=== PATIENT | female | born 1945 | race Caucasian/White ===

== ENCOUNTER → 2017-07-12 | Outpatient (CLI) | payer OTHER ==
[~2017-07-12] MED LIST: FURO20 PO; LEVSOD125 PO; POTA10T PO
== END | disposition home or self-care (01) ==
LOC: LAB EV 12:03
DX: R30.0 Dysuria (principal)
CPT/HCPCS: 87086

== ENCOUNTER → 2017-09-19 | Outpatient (CLI) | payer OTHER ==
[2017-09-19 10:12] LABS: Source, Urine Voided
[2017-09-19 10:18] LABS: Bacteria Rare /hpf; Mucus Light (0-Heavy); Red Blood Cells, Urine Not Seen /hpf (0-2); Squamous Epithelial Cells Few /hpf (Few)
== END | disposition home or self-care (01) ==
LOC: LAB SHORT 10:11 → LAB EV 10:11
PROVIDERS: Physician Assistant
DX: R10.30 Lower abdominal pain, unspecified (principal); N30.00 Acute cystitis without hematuria
CPT/HCPCS: 81015; 87086

== ENCOUNTER 2019-04-08 02:55 | Inpatient (IN) | payer OTHER ==
[~2019-04-08] VITALS: Ht 160 cm; Wt 99.1 kg
[2019-04-08] MEDS ORDERED: Synthroid88 MCG PO (03:17)
[2019-04-08] MEDS ORDERED: FURO20 PO (03:17)
[2019-04-08] MEDS ORDERED: ALBU90OI INH (03:17)
[2019-04-08] MEDS ORDERED: POTA10T PO (03:17)
[2019-04-08] MEDS ORDERED: THERA1 EACH PO (03:17)
[2019-04-08 03:24] LABS: BASOPHILS ABSOLUTE AUTO 0.04 K/mm3 (0.00-0.23); BASOPHILS PERCENT AUTO 1 % (0-2); EOSINOPHILS ABSOLUTE AUTO 0.13 K/mm3 (0.00-0.68); EOSINOPHILS PERCENT AUTO 2 % (0-6); Hematocrit 33.9 % (33.0-51.0); Hemoglobin 11.1 g/dL (11.5-16.0); IMMATURE GRAN ABSOLUTE AUTO 0.01 K/mm3 (0.00-0.10); IMMATURE GRAN PERCENT AUTO 0 % (0-1); LYMPHOCYTES ABSOLUTE AUTO 2.19 K/mm3 (0.84-5.20); LYMPHOCYTES PERCENT AUTO 39 % (21-46); MONOCYTES ABSOLUTE AUTO 0.69 K/mm3 (0.16-1.47); MONOCYTES PERCENT AUTO 12 % (4-13); Mean Corpuscular HGB 34.7 pg (26.0-34.0); Mean Corpuscular HGB Conc 32.7 g/dL (31.5-36.5); Mean Corpuscular Volume 106 fL (80-100); Mean Platelet Volume 11.2 fL (9.1-12.4); NEUTROPHILS ABSOLUTE AUTO 2.63 K/mm3 (1.96-9.15); NEUTROPHILS PERCENT AUTO 46 % (41-73); Platelet Count 130 K/mm3 (150-400); RDW Coefficient Variation 16.9 % (11.7-14.2); RDW Standard Deviation 65.9 fL (35.1-46.3); White Blood Cell Count 5.69 K/mm3 (4.00-11.30)
[2019-04-08 03:40] LABS: Alanine Aminotransfer (ALT/SGP 56 U/L (12-78); Albumin/Globulin Ratio 0.8 (0.8-1.8); Alk Phos 208 U/L (50-136); Anion Gap 10 mmol/L (6-16); Aspartate Aminotrans (AST/SGOT 70 U/L (12-37); Bilirubin, Total 0.8 mg/dL (0.1-1.0); Blood Urea Nitrogen 33 mg/dL (8-24); Bun/Creatinine Ratio 20.9 (12.0-20.0); CO2, Blood 22 mmol/L (21-32); Calcium, Blood 9.7 mg/dL (8.5-10.1); Chloride, Blood 111 mmol/L (98-108); Creatinine, Blood 1.58 mg/dL (0.40-1.00); Globulin, Blood 3.9 g/dL (2.2-4.0); Glomerular Filtration Rate 34 (60-); Glucose, Blood 85 mg/dL (70-99); Potassium, Blood 4.2 mmol/L (3.5-5.5); Sodium, Blood 143 mmol/L (136-145); Total Protein, Blood 6.9 g/dL (6.4-8.2); Troponin I <0.015 ng/mL (0.000-0.040)
--- NOTE | 2019-04-08 05:54 | NUR ---
0540 PT ADMITTED TO ROOM 306 PER CART FROM ER.
[2019-04-08 13:49] LABS: Bun/Creatinine Ratio 20.9 (12.0-20.0); Calcium, Blood 9.6 mg/dL (8.5-10.1); Creatinine, Blood 1.77 mg/dL (0.40-1.00); Potassium, Blood 4.3 mmol/L (3.5-5.5)
--- NOTE | 2019-04-08 15:23 | NUR ---
ECHOCARDIOGRAM COMPLETE
--- NOTE | 2019-04-08 16:26 | NUR ---
SUMMARY PT IS A/O X4, PLEASANT/COOPERATIVE AFFECT. SHE STATE NO SOB/DYSPNEA @ REST. UP SBA TO BR, GAIT STEADY. THIS AM SHE HAD ORDERS FOR NS 1L BOLUS THEN NS @ 200 ML/HR, DR AARON STOP IMMEDIATELY & ORDER NEPHROLOGY CONSULT w DR PICHARDO. IV BUMEX 2MG ORDERED. DR PICHARDO AGREE NO IVF. ORDER BLADDER SCAN, PVR 20 ML. ORDER RENAL US. ECHO COMPLETED. GFR 30. BNP 397. 24HR URINE PROTEIN COLLECTION IN PROGRESS. HER LUNGS HAVE BEEN CLEAR, 2+ EDEMA BLE. BP SOMEWHAT LOW, 100/45, WILL MX.
--- NOTE | 2019-04-08 22:37 | NUR ---
2000 77 Y/O FEMALE RESTING COMFORTABLY IN BED, DENIES CHEST PAIN OR SOB. 2229 PT C/O SLIGHT SOB, LUNG SOUNDS DIMINISHED THROUGHOUT, RESPIRATORY THERAPIST AT SIDE FOR BREATHING TREATMENT AND EVALUATION.
--- NOTE | 2019-04-09 03:57 | NUR ---
SHIFT SUMMARY: 74 Y/O OBESE FEMALE RESTED COMFORTABLY ALL SHIFT, C/O SOB ONCE WITH NEBULIZER TREATMENT GIVEN WITH RELIEF FELT, ALSO C/O THAT HOSPITAL BED VERY UNCOMFORTABLE NO MATTER WHICH POSITION SHE LAYS, TYLENOL 650MG PO GIVEN FOR HEADACHE AND GENERAL DISCOMFORT WITH RELIEF FELT, ALERT AND ORIENTED X 4, LUNG SOUNDS ARE DIMINISHED THROUGHOUT, BED LOW POSITION WITH CALL LIGHT AT SIDE.
[2019-04-09 04:18] LABS: BASOPHILS ABSOLUTE AUTO 0.03 K/mm3 (0.00-0.23); BASOPHILS PERCENT AUTO 1 % (0-2); EOSINOPHILS ABSOLUTE AUTO 0.03 K/mm3 (0.00-0.68); EOSINOPHILS PERCENT AUTO 1 % (0-6); Hematocrit 30.2 % (33.0-51.0); IMMATURE GRAN ABSOLUTE AUTO 0.03 K/mm3 (0.00-0.10); IMMATURE GRAN PERCENT AUTO 1 % (0-1); LYMPHOCYTES ABSOLUTE AUTO 1.11 K/mm3 (0.84-5.20); LYMPHOCYTES PERCENT AUTO 17 % (21-46); MONOCYTES ABSOLUTE AUTO 1.17 K/mm3 (0.16-1.47); MONOCYTES PERCENT AUTO 18 % (4-13); Mean Corpuscular HGB 35.1 pg (26.0-34.0); Mean Corpuscular HGB Conc 33.1 g/dL (31.5-36.5); Mean Corpuscular Volume 106 fL (80-100); Mean Platelet Volume 11.5 fL (9.1-12.4); NEUTROPHILS ABSOLUTE AUTO 4.25 K/mm3 (1.96-9.15); NEUTROPHILS PERCENT AUTO 64 % (41-73); Platelet Count 114 K/mm3 (150-400); RDW Standard Deviation 65.2 fL (35.1-46.3); Red Blood Cell Count 2.85 M/mm3 (3.80-5.20); White Blood Cell Count 6.62 K/mm3 (4.00-11.30)
[2019-04-09 04:39] LABS: Albumin, Blood 2.7 g/dL (3.4-5.0); Anion Gap 10 mmol/L (6-16); Blood Urea Nitrogen 43 mg/dL (8-24); Bun/Creatinine Ratio 21.2 (12.0-20.0); CO2, Blood 20 mmol/L (21-32); Calcium, Blood 9.2 mg/dL (8.5-10.1); Chloride, Blood 113 mmol/L (98-108); Creatinine, Blood 2.03 mg/dL (0.40-1.00); Glomerular Filtration Rate 25 (60-); Glucose, Blood 75 mg/dL (70-99); Phosphorus, Blood 4.4 mg/dL (2.5-4.9); Potassium, Blood 4.4 mmol/L (3.5-5.5); Sodium, Blood 143 mmol/L (136-145)
[2019-04-09 04:43] LABS: Thyroid Stimulating Hormone 0.951 uIU/mL (0.360-4.800)
[2019-04-09 11:58] LABS: Protein, Urine Quantitative 34.1 mg/dL (0.0-11.9)
--- NOTE | 2019-04-09 16:20 | NUR ---
SUMMARY PT STATE CONTINUING SHORTNESS OF BREATH, HER KIDNEY FX/GFR DECREASED OVERNITE TO 25, BNP INCREASED TO 631. BIOX 92-94% RA, LS w SOME CRACKLES BASES, BREATHING UNLABORED. DR PICHARDO IN TO SEE HER EARLY AM, INCREASE IV BUMEX 2MG TO BID. DR AARON AGREE. EXPLAIN ISSUES OF HEART & KIDNEY FAILURE TO PT/FAMILY. PT IS A/O X4, PLEASANT, UP SBA TO BR. VSS.
[2019-04-10 04:48] LABS: BASOPHILS ABSOLUTE AUTO 0.03 K/mm3 (0.00-0.23); BASOPHILS PERCENT AUTO 1 % (0-2); EOSINOPHILS ABSOLUTE AUTO 0.09 K/mm3 (0.00-0.68); EOSINOPHILS PERCENT AUTO 1 % (0-6); Hematocrit 31.1 % (33.0-51.0); Hemoglobin 10.2 g/dL (11.5-16.0); IMMATURE GRAN ABSOLUTE AUTO 0.02 K/mm3 (0.00-0.10); IMMATURE GRAN PERCENT AUTO 0 % (0-1); LYMPHOCYTES ABSOLUTE AUTO 1.55 K/mm3 (0.84-5.20); LYMPHOCYTES PERCENT AUTO 24 % (21-46); MONOCYTES ABSOLUTE AUTO 1.06 K/mm3 (0.16-1.47); MONOCYTES PERCENT AUTO 16 % (4-13); Mean Corpuscular HGB 35.3 pg (26.0-34.0); Mean Corpuscular HGB Conc 32.8 g/dL (31.5-36.5); Mean Corpuscular Volume 108 fL (80-100); Mean Platelet Volume 11.7 fL (9.1-12.4); NEUTROPHILS ABSOLUTE AUTO 3.78 K/mm3 (1.96-9.15); NEUTROPHILS PERCENT AUTO 58 % (41-73); NRBC ABSOLUTE 0.02 K/mm3 (0.00-0.02); NRBC Auto 0.3 /100 WBC (0.0-0.2); Platelet Count 110 K/mm3 (150-400); RDW Coefficient Variation 17.3 % (11.7-14.2); RDW Standard Deviation 67.8 fL (35.1-46.3); Red Blood Cell Count 2.89 M/mm3 (3.80-5.20); White Blood Cell Count 6.53 K/mm3 (4.00-11.30)
[2019-04-10 05:07] LABS: Albumin, Blood 2.7 g/dL (3.4-5.0); Anion Gap 11 mmol/L (6-16); Blood Urea Nitrogen 52 mg/dL (8-24); CO2, Blood 21 mmol/L (21-32); Calcium, Blood 9.4 mg/dL (8.5-10.1); Chloride, Blood 112 mmol/L (98-108); Creatinine, Blood 2.36 mg/dL (0.40-1.00); Glomerular Filtration Rate 21 (60-); Glucose, Blood 74 mg/dL (70-99); Magnesium, Blood 2.2 mg/dL (1.6-2.4); Phosphorus, Blood 5.2 mg/dL (2.5-4.9); Potassium, Blood 4.2 mmol/L (3.5-5.5); Sodium, Blood 144 mmol/L (136-145)
--- NOTE | 2019-04-10 05:53 | NUR ---
SHIFT SUMMARY SLEPT WELL T/O NIGHT. AOX4. VSS. REPORTS FEELING DYSPNIC EVEN @REST & WORSE W/LYING FLAT. E/U RESPIRATIONS, LUNGS SOUND DIM T/O, SPO2 >90% ON RA, ENCOURAGED KEEPING HOB ELEVATED. PT UP MULTIPLE TIMES TO USE RESTROOM W/SBA. DENIES PAIN OR N/V. CALL LIGHT IN REACH.
[2019-04-11 05:01] LABS: Hematocrit 30.4 % (33.0-51.0); Hemoglobin 10.3 g/dL (11.5-16.0)
[2019-04-11 05:15] LABS: Albumin, Blood 2.7 g/dL (3.4-5.0); Anion Gap 9 mmol/L (6-16); Blood Urea Nitrogen 53 mg/dL (8-24); Bun/Creatinine Ratio 23.8 (12.0-20.0); CO2, Blood 25 mmol/L (21-32); Calcium, Blood 9.6 mg/dL (8.5-10.1); Chloride, Blood 111 mmol/L (98-108); Creatinine, Blood 2.23 mg/dL (0.40-1.00); Glomerular Filtration Rate 23 (60-); Glucose, Blood 83 mg/dL (70-99); Magnesium, Blood 2.3 mg/dL (1.6-2.4); Phosphorus, Blood 3.9 mg/dL (2.5-4.9); Potassium, Blood 3.8 mmol/L (3.5-5.5); Sodium, Blood 145 mmol/L (136-145)
--- NOTE | 2019-04-11 07:20 | NUR ---
SHIFT SUMMARY NO ACUTE CHANGES THIS SHIFT. AOX4. VSS. SLEPT WELL T/O NIGHT. DENIES PAIN, N/V. STILL REPORTS DYSPNEA, MORE W/EXERTION. E/U RESPIRATIONS, LUNGS DIM T/O, SPO2 >90% ON RA. BLE EDEMA NOTED. SBA W/AMBULATION. CALL LIGHT IN REACH.
--- NOTE | 2019-04-11 15:24 | NUR ---
Patient is lying in bed and alert. Patient tells me that she has had difficult medical issues and sees that she has a long recovery ahead. She shares that she is up for the challenge and that she finds strength in her chas. Patient attends [employer] [facility] the [facility] and is often encouraged by the people who attend. Patient shares with me about her family unit complications, some of her personal emotional battles and about the challenge of the 28 steps up to her house. I listen empathically, reinforce helpful attitutes and practices provide emotional support, pastoral chromosomal disorders counselor and prayer. Patient responds well and shows signs of reduced stress. I will continue to remain available to patient and family.
--- NOTE | 2019-04-11 17:18 | NUR ---
SUMMARY PT RESTING QUIETLY IN BED, HAS BEEN PLEASANT AND COOPERATIVE WITH CARE T/O THE DAY, WORKED WITH PT/OT, SNF IS RECOMMENDED, FAMILY HAS BEEN IN TO VISIT, VSS NO ACUTE CHANGES, WILL CONT TO MONITOR
[2019-04-12 04:55] LABS: Hematocrit 30.4 % (33.0-51.0); Hemoglobin 10.1 g/dL (11.5-16.0)
[2019-04-12 05:39] LABS: Albumin, Blood 2.7 g/dL (3.4-5.0); Anion Gap 10 mmol/L (6-16); Blood Urea Nitrogen 58 mg/dL (8-24); Bun/Creatinine Ratio 26.6 (12.0-20.0); CO2, Blood 25 mmol/L (21-32); Calcium, Blood 9.7 mg/dL (8.5-10.1); Chloride, Blood 110 mmol/L (98-108); Creatinine, Blood 2.18 mg/dL (0.40-1.00); Glomerular Filtration Rate 23 (60-); Glucose, Blood 68 mg/dL (70-99); Magnesium, Blood 2.4 mg/dL (1.6-2.4); Phosphorus, Blood 4.4 mg/dL (2.5-4.9); Potassium, Blood 3.8 mmol/L (3.5-5.5); Sodium, Blood 145 mmol/L (136-145)
--- NOTE | 2019-04-12 06:49 | NUR ---
SHIFT SUMMARY NO ACUTE CHANGES THIS SHIFT. AOX4. VSS. REPORTS PAIN IN BILAT HIPS FROM SLEEPING IN HOSPITAL BED, MEDICATED W/TYLENOL PER ORDER. DENIES SOB @REST. E/U RESPIRATIONS. SPO2 >90% ON RA. LUNGS SOUND DIM T/O. DENIES N/V. CALL LIGHT IN REACH.
--- NOTE | 2019-04-12 08:45 | NUR ---
PT PLEASANT COOP A/O, DENIES PAIN AT THIS TIME. STATES LIGHTLY SOB WITH WALKING. H/R REG, MURTIP NOTED. NO TELE. NO PACER. LUNGS CLEAR T/O. RESP EASY, UNLABORED. ON RA. BT X4 LAST BM 1-2 DAYS. STATES NOT EXACTLY SURE. VOIDS SBA WITH FWW TO BATHROOM. GENERAL NON-PITTING EDEMA BED IN LOW POSITION, CALL LITE IN REACH, CALLS APPPROP
[2019-04-12] MEDS ORDERED: Bumetanide2 MG PO (14:27)
[2019-04-12] MEDS ORDERED: Vsl#3 Capsule1 EACH PO (14:28)
[2019-04-12] MEDS ORDERED: FLUTICASONE-SA1 EAC2 INH (14:28)
[2019-04-12] MEDS ORDERED: TRAM50 PO (14:29)
[2019-04-12] MEDS ORDERED: SENN187 PO (14:29)
--- NOTE | 2019-04-12 15:49 | NUR ---
Patient is lying in bed and alert. Patient informs that she is being discharged today. Patient is excited about having movement forward and about how well she did with PT today. Patient shares more about her family and her hobbies. I listen empathically, celebrate her victories and provide prayer. Patient voices appreciation for the visit.
--- NOTE | 2019-04-12 16:36 | NUR ---
discharge at 1530 going to [facility]. called report to [facility]. [facility]. iv pulled intact. pt out at 1531
--- NOTE | 2019-04-25 01:12 | NUR ---
REVIEWED PATIENT'S DISCHARGE INFORMATION TO FIND OUT WHAT [facility] SHE WAS RECENTLY DISCHARGED FROM TODAY TO GET HER MEDICATION LIST.
== END 2019-04-12 15:54 | disposition home or self-care (01) | DRG 682 ==
LOC: ER 02:55 → MEDS 02:56
PROVIDERS: Emergency Medicine; Family Medicine; Internal Medicine Nephrology; ADMIT Hospitalist
DX: N17.9 Acute kidney failure, unspecified (principal); I50.33 Acute on chronic diastolic (congestive) heart failure; E03.9 Hypothyroidism, unspecified; E66.9 Obesity, unspecified; Z68.38 Body mass index [BMI] 38.0-38.9, adult; E87.70 Fluid overload, unspecified; I27.20 Pulmonary hypertension, unspecified; I08.3 Combined rheumatic disorders of mitral, aortic and tricuspid valves; E83.39 Other disorders of phosphorus metabolism; E88.09 Other disorders of plasma-protein metabolism, not elsewhere classified; K70.31 Alcoholic cirrhosis of liver with ascites; N18.3 Chronic kidney disease, stage 3 (moderate); D63.1 Anemia in chronic kidney disease
CPT/HCPCS: 36415; 71046; 71250; 76770; 80048; 80053; 80069; 81050; 82140; 83735; 83880; 84156; 84443; 84484; 85014; 85018; 85025; 90686; 93005; 93010; 93306; 94640; 94760; 96365; 96366; 96372; 96375; 96376; 97116; 97162; 97165; 97530; 97535; 99285-25; A9270; G0008; G0378; J0696; J1644; J7030

== ENCOUNTER 2019-04-24 18:15 | Inpatient (IN) | payer OTHER ==
[~2019-04-24] VITALS: Ht 162.6 cm; Wt 98.4 kg
[~2019-04-24 18:15] MED LIST changes: +ALBU90OI INH; +Bumetanide2 MG PO; +FLUTICASONE-SA1 EAC2 INH; +SENN187 PO; +Synthroid88 MCG PO; +THERA1 EACH PO; +TRAM50 PO; +Vsl#3 Capsule1 EACH PO
[2019-04-24 18:45] LABS: BASOPHILS ABSOLUTE AUTO 0.02 K/mm3 (0.00-0.23); BASOPHILS PERCENT AUTO 0 % (0-2); EOSINOPHILS ABSOLUTE AUTO 0.09 K/mm3 (0.00-0.68); EOSINOPHILS PERCENT AUTO 1 % (0-6); Hematocrit 30.2 % (33.0-51.0); Hemoglobin 10.3 g/dL (11.5-16.0); IMMATURE GRAN ABSOLUTE AUTO 0.04 K/mm3 (0.00-0.10); IMMATURE GRAN PERCENT AUTO 1 % (0-1); LYMPHOCYTES ABSOLUTE AUTO 1.15 K/mm3 (0.84-5.20); LYMPHOCYTES PERCENT AUTO 15 % (21-46); MONOCYTES PERCENT AUTO 12 % (4-13); Mean Corpuscular HGB 35.4 pg (26.0-34.0); Mean Corpuscular HGB Conc 34.1 g/dL (31.5-36.5); Mean Corpuscular Volume 104 fL (80-100); Mean Platelet Volume 12.1 fL (9.1-12.4); NEUTROPHILS ABSOLUTE AUTO 5.35 K/mm3 (1.96-9.15); NEUTROPHILS PERCENT AUTO 71 % (41-73); NRBC ABSOLUTE 0.03 K/mm3 (0.00-0.02); NRBC Auto 0.4 /100 WBC (0.0-0.2); Platelet Count 124 K/mm3 (150-400); RDW Coefficient Variation 16.2 % (11.7-14.2); RDW Standard Deviation 61.3 fL (35.1-46.3); Red Blood Cell Count 2.91 M/mm3 (3.80-5.20); White Blood Cell Count 7.55 K/mm3 (4.00-11.30)
[2019-04-24 19:01] LABS: Source, Urine Clean Catch
[2019-04-24 19:05] LABS: Blood, Urine 2+ (Neg); Glucose Qualitative, Urine 1+ (Neg); Ketones, Urine 1+ (Neg); Leukocyte Esterase, Urine 1+ (Neg); Nitrite, Urine Neg (Neg); Protein, Urine 4+ (Neg); Specific Gravity, Urine 1.025 (1.003-1.022); Urobilinogen, Urine 1+ (Normal)
[2019-04-24 19:05] LABS: Albumin, Blood 2.9 g/dL (3.4-5.0); Albumin/Globulin Ratio 0.7 (0.8-1.8); Bilirubin, Total 1.1 mg/dL (0.1-1.0); Calcium, Blood 10.1 mg/dL (8.5-10.1); Creatinine, Blood 3.34 mg/dL (0.40-1.00); Globulin, Blood 4.1 g/dL (2.2-4.0); Potassium, Blood 4.6 mmol/L (3.5-5.5)
[2019-04-24 19:12] LABS: Appearance, Urine Cloudy (Clear); Bilirubin, Urine 1+ (Neg); Color, Urine Yellow (P-Yellow)
[2019-04-24 19:15] LABS: Bacteria Many /hpf; Calcium Oxalate Crystals Few /hpf; Squamous Epithelial Cells Mod /hpf (Few)
[2019-04-24 19:16] LABS: Transitional Epithelial Cells Few /hpf (0-Rare)
[2019-04-24 19:20] LABS: U Amphetamine Screen Not Detected
[2019-04-24 19:21] LABS: U Barbituate Screen Not Detected; U Benzodiazapine Screen Not Detected; U Buprenorphine Screen Not Detected; U Cannabinoids Screen Not Detected; U Cocaine Screen Not Detected; U Methadone Screen Not Detected; U Methamphetamine Screen Not Detected; U Opiates Screen Not Detected; U Oxycodone Screen Not Detected; U Phencyclidine Screen Not Detected; U Propoxyphene Screen Not Detected
[2019-04-25] MEDS ORDERED: CEFTIN PO (01:23)
--- NOTE | 2019-04-25 04:43 | NUR ---
SHIFT SUMMARY UPON ARRIVING TO THE UNIT, THE PATIENT HAD A TEMPERATURE OF 90.1. I CONTACTED THE SALES CLERK PHYSICIAN AT 2215 AND OBTAINED AN ORDER FOR A LEANNE HUGGER TO HELP BRING THE PATIENT'S BODY TEMPERATURE BACK UP TO NORMAL. OF THIS POINT THE ISSUE HAS RESOLVED, BUT THE MACHINE AND BLANKET IS STILL IN THE ROOM IN CASE HER TEMPERATURE DROPS AGAIN. THE PATIENT IS A PLEASANT WOMAN BUT CAN BE FORGETFUL AT TIMES. IV IS PATENT AND INFUSING WITH NORMAL SALINE AT 100 ML/HR. BED IN LOWEST POSITION WITH WHEELS LOCKED AND ALARM ON. CALL LIGHT WITHIN REACH. PALLIATIVE CARE CONSULT CALLED IN. REPORT GIVEN TO ONCHARDY VEGA.
[2019-04-25 05:01] LABS: Hematocrit 28.1 % (33.0-51.0); Hemoglobin 9.5 g/dL (11.5-16.0); Mean Corpuscular HGB 34.5 pg (26.0-34.0); Mean Corpuscular HGB Conc 33.8 g/dL (31.5-36.5); Mean Corpuscular Volume 102 fL (80-100); Mean Platelet Volume 11.8 fL (9.1-12.4); NRBC ABSOLUTE 0.03 K/mm3 (0.00-0.02); NRBC Auto 0.4 /100 WBC (0.0-0.2); Platelet Count 108 K/mm3 (150-400); RDW Coefficient Variation 15.8 % (11.7-14.2); RDW Standard Deviation 58.4 fL (35.1-46.3); Red Blood Cell Count 2.75 M/mm3 (3.80-5.20)
[2019-04-25 05:45] LABS: Bun/Creatinine Ratio 20.4 (12.0-20.0); Calcium, Blood 9.1 mg/dL (8.5-10.1); Creatinine, Blood 3.63 mg/dL (0.40-1.00); Potassium, Blood 4.9 mmol/L (3.5-5.5); Thyroid Stimulating Hormone 0.668 uIU/mL (0.360-4.800)
--- NOTE | 2019-04-25 17:41 | NUR ---
SHIFT SUMMARY PT UP TO BATHROOM SEVERAL TIMES TODAY WITH NO MORE THAN 5ML OF URINE PRODUCED EACH TIME. ATTEMPTED BLADDER SCANS BUT UNABLE TO VISUALIZE BLADDER. SPOKE WITH MD AND RENAL AND BLADDER ULTRASOUND REPORTED NOT FINDING A FULL BLADDER EITHER. BROTHER IN TO VISIT THIS AFTERNOON. SPOKE WITH HIM OF CONCERN ABOUT PTS ABILITY TO DO ADLS WHEN AT HOME. DR. PICHARDO NOW ON CASE AND NEW ORDERS PLACED. 1 PERSON ASSIST USING FWW TO BATHROOM.
--- NOTE | 2019-04-26 04:55 | NUR ---
Shift Summary Patient slept well overnight. She got up several times to use the bathroom but produced only a few drops. She did not void enough for urine sample. Bladder scan reads 0mL, and the patients states her bladder does not feel full. Fluids running per emar. 3+ Le edema present. Dr. Wolff is following.
[2019-04-26 05:42] LABS: BASOPHILS ABSOLUTE AUTO 0.02 K/mm3 (0.00-0.23); BASOPHILS PERCENT AUTO 0 % (0-2); EOSINOPHILS ABSOLUTE AUTO 0.19 K/mm3 (0.00-0.68); EOSINOPHILS PERCENT AUTO 3 % (0-6); Hematocrit 28.2 % (33.0-51.0); Hemoglobin 9.4 g/dL (11.5-16.0); IMMATURE GRAN ABSOLUTE AUTO 0.05 K/mm3 (0.00-0.10); IMMATURE GRAN PERCENT AUTO 1 % (0-1); International Normalized Ratio 1.34; LYMPHOCYTES ABSOLUTE AUTO 1.75 K/mm3 (0.84-5.20); LYMPHOCYTES PERCENT AUTO 23 % (21-46); MONOCYTES ABSOLUTE AUTO 1.11 K/mm3 (0.16-1.47); MONOCYTES PERCENT AUTO 15 % (4-13); Mean Corpuscular HGB 35.3 pg (26.0-34.0); Mean Corpuscular HGB Conc 33.3 g/dL (31.5-36.5); Mean Platelet Volume 11.3 fL (9.1-12.4); NEUTROPHILS ABSOLUTE AUTO 4.53 K/mm3 (1.96-9.15); NEUTROPHILS PERCENT AUTO 59 % (41-73); NRBC ABSOLUTE 0.09 K/mm3 (0.00-0.02); NRBC Auto 1.2 /100 WBC (0.0-0.2); Platelet Count 101 K/mm3 (150-400); Prothrombin Time Results 13.8 Sec (9.7-11.5); RDW Coefficient Variation 16.5 % (11.7-14.2); RDW Standard Deviation 63.3 fL (35.1-46.3); Red Blood Cell Count 2.66 M/mm3 (3.80-5.20); White Blood Cell Count 7.65 K/mm3 (4.00-11.30)
[2019-04-26 05:47] LABS: Albumin, Blood 2.8 g/dL (3.4-5.0); Albumin/Globulin Ratio 0.8 (0.8-1.8); Bilirubin, Total 0.7 mg/dL (0.1-1.0); Calcium, Blood 9.1 mg/dL (8.5-10.1); Creatinine, Blood 4.26 mg/dL (0.40-1.00); Globulin, Blood 3.7 g/dL (2.2-4.0); Magnesium, Blood 2.4 mg/dL (1.6-2.4); Phosphorus, Blood 6.3 mg/dL (2.5-4.9); Potassium, Blood 5.3 mmol/L (3.5-5.5); Total Protein, Blood 6.5 g/dL (6.4-8.2)
[2019-04-26 05:50] LABS: Mean Corpuscular Volume 106 fL (80-100)
[2019-04-26 06:55] LABS: Chloride, Urine, Random 29 mmol/L (55-125); Sodium, Urine, Random 41 mmol/L (20-110)
--- NOTE | 2019-04-26 15:55 | NUR ---
Echocardiogra using 9.0ml of agtated saline contrast performed.
--- NOTE | 2019-04-26 19:06 | NUR ---
SHIFT SUMMARY NOTIFIED DR. PICHARDO APPROX NOON ABOUT NO VOID SINCE BUMEX GIVEN THIS MORNING. NEW ORDERS GIVEN WITH PT VODING ONLY ONCE AND MISSED THE HAT. CONTINUES TO NOT EAT MORE THAN A FEW BITES OF MEALS AND SUPPLEMENTS OFFERED. BROTHER IN TO VISIT EARLIER TODAY. POSSIBLE PERMCATH PLACEMENT TOMORROW. CONSULT CALLED IN. WILL MAKE NPO AT MIDNOC FOR POSSIBLE PLACEMENT. UP AND DOWN IN BED FREQUENTLY. REPORTS HER THROAT FEELS LIKE ITS CLOSING UP WHEN SHE TRIES TO SWALLOW FOOD BUT IS ABLE TO SWALLOW WATER WITH NO PROBLEM AND FREQUENTLY ASKS FOR WATER.
--- NOTE | 2019-04-26 21:01 | NUR ---
ASSUMED CARE OF THE PATIENT. PATIENT TRANSFERRED FROM ROOM 348. GOT HER SETTLED INTO THE ROOM. SHE DENIED ANY NEEDS. REPOSITIONED ON SIDE. CALL LIGHT GIVEN, BED ALARM ON.
[2019-04-27 04:52] LABS: Hemoglobin 8.9 g/dL (11.5-16.0)
--- NOTE | 2019-04-27 05:10 | NUR ---
SHIFT SUMMARY: 74 Y/O FEMALE ADMITTED FOR ACUTE RENAL FAILURE. PATIENT WAS TRANSFERRED TO ROOM FROM [facility]. SHE HAS BEEN RESTING OFF AND ON THROGHOUT THE NIGHT. NO URINE OUTPUT AT THIS TIME. ATTENDS HAS REMAINED DRY. BED ALARM HAS REMAINED ON WITH ONLY ONCE SOUNDING OFF. IV FLUIDS INFUSING WITH NO PROBLEMS. NO ACUTE CHANGES OR CONCERNS WERE TO NOTE. WILL REPORT TO DAY SHIFT RN.
[2019-04-27 05:13] LABS: Albumin, Blood 3.1 g/dL (3.4-5.0); Albumin/Globulin Ratio 0.9 (0.8-1.8); Bilirubin, Direct 0.3 mg/dL (0.0-0.3); Bilirubin, Indirect 0.4 mg/dL (0.1-0.7); Bilirubin, Total 0.7 mg/dL (0.1-1.0); Bun/Creatinine Ratio 19.7 (12.0-20.0); Calcium, Blood 8.9 mg/dL (8.5-10.1); Creatinine, Blood 4.73 mg/dL (0.40-1.00); Globulin, Blood 3.4 g/dL (2.2-4.0); Magnesium, Blood 2.4 mg/dL (1.6-2.4); Phosphorus, Blood 6.7 mg/dL (2.5-4.9); Potassium, Blood 5.2 mmol/L (3.5-5.5); Total Protein, Blood 6.5 g/dL (6.4-8.2); Uric Acid, Blood 10.8 mg/dL (2.6-6.0)
[2019-04-27 11:41] LABS: International Normalized Ratio 1.39; Prothrombin Time Results 14.3 Sec (9.7-11.5)
--- NOTE | 2019-04-27 14:11 | NUR ---
THIS AM PT WEAK/FATIGUED, OBTUNDED. TEMP LOW 85-86, WARM BLANKETS, K-PAD & THERMOSTAT INCREASE PROVIDED. DR GONZALES NOTIFIED STATE TO CONTINUE INTERVENTIONS TO IMPROVE TEMP. DR TREJO IN TO SEE PT R/T PERMACATH SURG HOWEVER PT UNABLE TO PROVIDE CONSENT D/T AMS. DR GONZALES, DR TREJO STATE WE WILL HOLD PROCEDURE UNTIL POA CAN BE REACHED. THIS AFTERNOON TEMP HAS IMPROVED TO 92.2, CONTINUING INTERVENTIONS.
[2019-04-27 15:02] LABS: Free Thyroxine 1.6 ng/dL (0.70-1.60)
[2019-04-27 15:04] LABS: Thyroid Stimulating Hormone 0.317 uIU/mL (0.360-4.800); Triiodothyronine, Free 1.27 pg/mL (2.18-3.98)
--- NOTE | 2019-04-27 17:06 | NUR ---
Called to see patient by nurisng. Warming measures in place. pt able to give very brief yes or no answers to some questions. pt moaning and umcomfotable. nods no to pain. yes to stiffness and aching all over and feeling scared. Reassurance given and gentle repositioning. pt noded yes to sensitive to light and sound. Her mouth sore and dry tolerated oral care well and lip care. Pt chart clerk at bedside reassuring pt. Review of acre needs and prognosis with nursing. suggested prn meds for comfort. possibly rectal tylenol or judicous use of iv narcotics suggest comfort care pt showing possible symptoms of uremia.
--- NOTE | 2019-04-27 18:42 | NUR ---
SUMMARY PT HAS BEEN FATIGUED, DROWSY T/O DAY, SHE OPENS EYES TO VERBAL STIM, SLOW RESPONSE, CONFUSION--AMS. AMMONIA ELEVATED @ 90. GFR 10, BUN ELEVATED. DR GONZALES & DR TREJO CONSULTED W FAMILY TODAY, THEY STATE NO PERMA CATH SURG OR DIALYSIS, STATE THIS WOULD NOT BE PT'S WISH. PROCEDURE CANCELLED, DR PICHARDO NOTIFIED. DR GONZALES STATE WHEN OUT OF STATE DAUGHTER ARRIVES TOMORROW WILL DISCUSS COMFORT CARE, FOR NOW CONTINUE W CURRENT ORDERS & INTERVENTIONS. LOW TEMP HAS BEEN ISSUE TODAY, LAST 94. WE HAVE KEPT HEAT UP IN ROOM, PT WRAPPED IN WARM BLANKETS & STOCKING CAP, HEATING PAD IN PLACE. DR STATE NO FURTHER INTERVENTIONS @ THIS TIME. PT HAS NOT PUT OUT URINE T/O SHIFT, DR PICHARDO ORDER INCREASE IN IV BUMEX, CANCEL 24 HR URINE COLLECTION.
--- NOTE | 2019-04-27 22:35 | NUR ---
ASSUMED CARE OF THE PATIENT. PATIENT IS VERY LETHARGIC, GROINING, DROWSY EYES. WILL RESPOND TO NAME AND SIMPLE QUESTIONS WITH A YES OR NO. BUT IS UNRESPONSIVE TO OTHER QUESTIONS. SHE WILL MOVE HER HAND OCCATIONALLY BUT DOES NOT REPOND TO BEING ASKED TO MOVE HER EXTREMITIES. NEURO CHECKS ARE POSITIVE. SEE CHART FOR MORE INFORMATION. CALL LIGHT IS IN REACH EVEN THOUGH SHE WILL NOT BE ABLE TO USE IT. BED ALARM IS ON. CONTINUE TO ATTEMPT TO MAKE HER COMFORTABLE. SHE DENIES ANY PAIN AT THIS TIME WHEN ASKED. WILL CONTINUE TO MONITOR.
--- NOTE | 2019-04-27 23:20 | NUR ---
RT REPORTED SHE WAS WALKING PAST ROOM WHEN CONTINUOUS BIOX WAS ALARMING. SHE FOUND THE PATIENT WITH SATS IN THE 80'S AND FOAMING OUT OF THE MOUTH. SHE HOOKED UP SUCTION AND SUCTIONED HER, RESULTS WERE PINK TINGE FROTH, REPOSITIONED THE PATIENT UP IN BED. WENT TO THE PATIENTS ROOM TO FIND THAT HER SATS WERE 88-90% ON 5 LITERS SHE WAS NOW ON DUE TO RT TURNING UP HER OXYGEN. SUCTIONED HER AGAIN, THEN WITH FEED HOUSE SUPERVISOR ASSISTANCE CLEANSED HER FROM SMALL SMEAR OF BROWN BM. POSITIONED HER FLAT SUPINE ON THE BED, AND UPRIGHT. SATS STAYING AT 89-91% AT THIS TIME. WILL CONTINUE TO MONITOR.
--- NOTE | 2019-04-28 00:43 | NUR ---
PATIENT CONITUED TO HAVE INCREASE IN SECREATIONS AND GARGLING ,SUCTION WAS NEEDED EVERY 30MIN TO KEEP HER SATS AROUND 90%, SHE BECAME MORE UNRESPONSIVE, WILL ONLY OPEN HER EYES. CALLED HOSPITALIST REGINA CANDELARIO WHO CAME AND SAW THE PATIENT. PATIENT WAS PLACED ON COMFORT CARE MEASURES. ATROPINE DROPS WERE ORDERED FOR HER SECREATIONS. CONTINUE BIOX WAS DC'D, ALONG WITH OXYGEN PER MD ORDERS. ATROPINE DROPS WERE GIVEN AFTER SUCTIONING WAS COMPLETED AGAIN. WILL CONTINUE TO MONITOR HER.
--- NOTE | 2019-04-28 04:36 | NUR ---
PATIENT IS RESTING COMFORTABLY SECREATIONS HAVE DECREASED, SATS AVERAGING 88% ON RA. NO SIGNS OF DISTRESS. WILL CONTINUE TO MONITOR.
--- NOTE | 2019-04-28 04:49 | NUR ---
SHIFT SUMMARY: RAMÓN IS A 74 Y/O FEMALE ADMITTED WITH ACUTE RENAL FAILURE. RAMÓN WENT FROM MINIMAL WORDS, LETHARGIC, REPONDING TO SOME QUESTIONS, TO LETHARGIC, ONLY OPENING EYES TO HER NAME BUT UNRESPONSIVE TO QUESTIONS OR DIRECTIONS OVER NIGHT. SHE HAD INCREASE IN SECREATIONS NEEDING TO BE SUCTIONED EVERY 30MIN. TO MD BEING CALLED AND SHE WAS PLACED ON COMFORT MEASURES. ATROPINE DROP WAS GIVEN TO HELP SECREATIONS WHICH WORKED. CONTINUOUS BIOX, LABS, OXYGEN, AND SEVERAL OTHER ORDERS WERE DISCONTINUED. SHE NOW ONLY OPENS EYES WHEN HER NAME IS SPOKEN, BUT DOES NOT REPSOND TO ANYTHING ELESE. SATS HAVE BEEN AVERAGING 88% ON RA, SUCTION IS NOW ONLY PRN. WILL INFORM DAUGHTER OF THE CHANGES BEFORE GOING HOME TODAY.
--- NOTE | 2019-04-28 06:32 | NUR ---
ATTEMPTED TO CALL PATIENTS DAUGHTER AVERY THIS AM. WAS UNABLE TO GET AHOLD OF HER. NO MESSAGE WAS LEFT AT THIS TIME. WILL ENCOURAGE DAY SHIFT TO ATTEMPT TO CALL AGAIN LATER IN THE DAY.
--- NOTE | 2019-04-28 07:25 | NUR ---
WHEN SPEAKING TO THE DOCTOR LAST NIGHT, SHE RECOMMENDED FOR ME TO PASS ON TO DAY SHIFT NOT TO ADMINISTER ANY MEDS TILL DAYSHIFT DOCTOR COMES IN. STATES THAT THE PATIENT IS UNABLE TO SWALLOW AND AT THIS POINT IS COMFORT CARE. IT WILL BE UP TO HER DOCTOR IF THEY WANT TO DC THE MORNING MEDS, BUT SHE RECOMMENDED NOT TO ADMINISTER THEM. SPOKE TO DR. PICHARDO TODAY AND INFORMED THE PATIENT IS COMFORT CARE, HE SAID OK, NO ORDERS NOTED.
--- NOTE | 2019-04-28 11:22 | NUR ---
PT NONRESPONSIVE TO VERBAL STIM, LIGHT MOANING THIS AM, PRN FENTANYL 25 MCG GIVEN FOR S/S PAIN. PUBLICATION EDITOR CHECK & CHANGE ATTENDS, REPOSITION FOR COMFORT. PT BROTHER ERICA @ BEDSIDE, PALLIATIVE CARE IN FOR SUPPORT. DR AMES NOTIFIED OF COMFORT CARE STATUS, IN TO SEE PT, STATE WILL ADJUST MEDICATIONS.
--- NOTE | 2019-04-28 14:09 | NUR ---
BROTHER & FRIEND @ BEDSIDE. PT CONTINUES NONRESPONSIVE, NO S/S PAIN @ THIS TIME. HER BREATHING IS SHALLOW, WET. COMFORT CARE MEDICATIONS REVIEWED W FAMILY. MORE FAMILY ON WAY FORM OUT OF STATE.
--- NOTE | 2019-04-28 15:27 | NUR ---
PT DAUGHTER AVERY FROM [place], PT BROTHER MISHEL ALSO IN ROOM. PT CONTINUES NONRESPONSIVE. BREATHING SHALLOW/WET, PRN ATROPINE GTTS GIVEN. RESP RATE 28-32, PRN ROXANOL 10 MG GIVEN, RATE DECREASE TO 24. WILL CONTINUE TO MX & PROVIDE COMFORT CARE.
--- NOTE | 2019-04-28 18:54 | NUR ---
RESPIRATIONS SOMEWHAT LABORED, MILD MOANS W SOME BROW FURROWING, PRN ROXANOL GIVEN FOR S/S AIR HUNGER & PAIN. ORAL CARE PROVIDED. PT REPOSITONED & SUPPORTED W PILLOWS. SHE CONTINUES NONRESPONSIVE. NO URINE OUTPUT T/O DAY, CONTINUING ANASARCA. FAMILY MEMBERS OUT OF ROOM @ THIS TIME, WILL HANDOFF CARE TO JASON VEGA.
--- NOTE | 2019-04-28 19:30 | NUR ---
PATIENT NONRESPONSIVE, DOES NOT RESPOND TO NAME NOW. MOANS OCCATIONALLY BUT DOES NOT HAVE ANY SIGNS OF DISCOMFORT. BREATHING IS EVEN AND UNLABORED. WILL CONTINUE TO MONITOR AND PROVIDE COMFORT MEASURES.
--- NOTE | 2019-04-28 23:23 | NUR ---
PATIENT GRUNTING WITH HER BREATHING. RESP AVERAGE 12 AT THIS TIME. SOME GURGLING NOTED. SUCTIONED OUT SECREATIONS, GAVE ROXINAL FOR PAIN. MOISTENED MOUTH WITH SWABS. PATIENT HAD NO RESPONSE TO INTERVENTIONS.
--- NOTE | 2019-04-29 00:09 | NUR ---
PATIENT STILL GRUNTING SOME WITH HER BREATHING, NO GRIMACING NOTED. RESP 12. NO SIGNS OF DISTRESS. REPOSITIONED, WILL CONTINUE TO MONITOR.
--- NOTE | 2019-04-29 02:01 | NUR ---
PATIENT UNRESPONSIVE, BUT RESTING COMFORTABLY. OCCATIONAL GURGLES, SUCTION DONE WITH LITTLE SECREATIONS IN RETURN. NO SIGN OF DISTRESS OR PAIN NOTED.
--- NOTE | 2019-04-29 04:12 | NUR ---
REPOSITIONED, CHECKED ATTENDS AGAIN, NO URINE OUTPUT OR STOOL. NO SIGNS OF PAIN OR DISCOMFORT, BREATHING IS 15 BREATHS A MIN. A LITTLE GARLING NOTED.
--- NOTE | 2019-04-29 05:30 | NUR ---
SHIFT SUMMARY: RAMÓN REMAINED UNCHANGED FROM PREVIOUS SHIFT. SHE STILL UNRESPONSIVE TO STIMULI OTHER THEN PAIN. REPOSITIONED EVERY 2 HOURS, NO URINE OUTPUT, ATTENDS REMAINED DRY. EDEMA TO ALL EXTREMITIES. SUCTIONED PRN. GAVE ROXINAL X1 AND ATROPINE DROPS X2. NO OTHER CHANGES TO NOTE.
--- NOTE | 2019-04-29 06:16 | NUR ---
NO CHANGES, NO DISTRESS, RESP UNLABORED.
--- NOTE | 2019-04-29 14:34 | NUR ---
PATIENT AT 1333. CHARGE NURSE ATTEMPTED TO CONTACT DR. AMES. PATIENT'S FAMILY WAS AT THE BEDSIDE. PATIENT HAD HER POINT OF CONTACT: HER BROTHER MISHEL, PRESENT WHEN SHE PASSED. PALLIATIVE CARE WAS ASKED TO VISIT THE FAMILY. THE BAKER BREAD IS CURRENTLY SPEAKING WITH THE FAMILY AND THEY ARE ALSO GOING TO FIND A HOME A FAMILY AFTER THEIR VISIT WITH THE BAKER BREAD. PATIENT HAD IVS REMOVED, PATIENT HAS NO BELONGINGS IN HER CARE, BROTHER ALSO VERIFIED PRIOR TO . ALL JEWELRY HAS BEEN REMOVED. ANY POSSIBLE BELONGINGS BROTHER WILL TAKE WITH HIM WHEN HE IS DONE SAYING HIS GOODBYES.
--- NOTE | 2019-04-29 14:35 | NUR ---
Pastoral care visitation. Pt's family in room talking amongst themselves. Family give an overview as to the events leading up to the pt's demise. They are grieving appropriately and proceeded to reminisce congruently. Pastoral presence, empathic listening, and validating feedback provided. Extended consolatory prayer at family request. Other family enter the room and remain present.
--- NOTE | 2019-04-29 14:44 | NUR ---
pt passed, after care with family. Their annealing oven operator who has been visiting is out of town so they wanted prayed called in chaplian for support. Family from out of town so assisted with funneral planning. famil demonstrating meaningful grief they have large support system. offered follow up care and assistance if needed
--- NOTE | 2019-04-29 18:32 | NUR ---
SHIFT SUMMARY PATIENT AT 1333 TODAY. CALLED AND LEFT A MESSAGE FOR DR. AMES WHO DID NOT ANSWER AT THE TIME. FAMILY WAS WITH THE PATIENT WHEN SHE PASSED. CURRENTLY AWAITING EYE DONATION, AND POSSIBLE TISSUE DONATION.
--- NOTE | 2019-04-29 21:35 | NUR ---
PT'S BODY EN ROUTE TO [facility] FOR TISSUE REMOVAL PER [facility] [employer], AFTERWARDS PT'S BODY WILL BE TAKEN TO [facility].
[2019-05-01 07:07] LABS: ANTIGLOMERULAR BM AB 3 units (0-20)
[2019-05-01 15:06] LABS: ANA DIRECT Negative (Negative); ANTIMYELOPEROXIDASE (MPO) ABS <9.0 U/mL (0.0-9.0); ANTIPROTEINASE 3 (PR-3) ABS <3.5 U/mL (0.0-3.5); ATYPICAL PANCA <1:20 titer (Neg:<1:20); CYTOPLASMIC (C-ANCA) <1:20 titer (Neg:<1:20); PERINUCLEAR (P-ANCA) <1:20 titer (Neg:<1:20)
[2019-05-01 16:06] LABS: ALBUMIN 2.8 g/dL (2.9-4.4); ALPHA-1-GLOBULIN 0.5 g/dL (0.0-0.4); ALPHA-2-GLOBULIN 0.5 g/dL (0.4-1.0); GAMMA GLOBULIN 0.9 g/dL (0.4-1.8); IMMUNOGLOBULIN A, QN, SERUM 338 mg/dL (64-422); IMMUNOGLOBULIN G, QN, SERUM 986 mg/dL (700-1600); IMMUNOGLOBULIN M, QN, SERUM 28 mg/dL (26-217); M-SPIKE Not Observed g/dL (Not Observed); PROTEIN, TOTAL, SERUM 5.8 g/dL (6.0-8.5)
== END 2019-04-29 13:33 | DRG 441 ==
LOC: ER 18:15 → MEDS 18:16
PROVIDERS: Emergency Medicine; Internal Medicine; Internal Medicine Nephrology; ADMIT Hospitalist
DX: K76.7 Hepatorenal syndrome (principal); G92 Toxic encephalopathy; N17.0 Acute kidney failure with tubular necrosis; E87.4 Mixed disorder of acid-base balance; E87.1 Hypo-osmolality and hyponatremia; E03.9 Hypothyroidism, unspecified; G47.33 Obstructive sleep apnea (adult) (pediatric); I35.0 Nonrheumatic aortic (valve) stenosis; Q63.1 Lobulated, fused and horseshoe kidney; N18.3 Chronic kidney disease, stage 3 (moderate); K70.30 Alcoholic cirrhosis of liver without ascites; E66.9 Obesity, unspecified; I95.9 Hypotension, unspecified; D63.1 Anemia in chronic kidney disease; E87.5 Hyperkalemia; T68.XXXA Hypothermia, initial encounter; Z51.5 Encounter for palliative care
CPT/HCPCS: 36415; 36600; 71046; 76770; 80048; 80053; 81001; 82140; 82248; 82436; 82550; 82784; 82803; 83516; 83520; 83735; 84100; 84165; 84300; 84439; 84443; 84481; 84550; 85014; 85018; 85025; 85027; 85610; 86038; 86256; 86334; 87040; 87086; 93005; 93010; 93308; 93321; 94762; 96361; 96365; 96372; 97165; 97535; 99285-25; G0378; G0480; J0696; J0881; J1644; J2354; J3010; J7030; J7050; P9041; P9612